=== PATIENT | male | born 1975 | race Caucasian/White ===

== ENCOUNTER 2017-05-19 13:11 | Emergency (ER) | payer BC ==
[~2017-05-19] VITALS: Ht 195.6 cm; Wt 123.7 kg
[2017-05-19 13:17] VITALS: TEMP 37; Ht 195.6 cm; Wt 123.7 kg
[2017-05-19] MEDS ORDERED: ESCI1TAB10 PO (13:58)
[2017-05-19] MEDS ORDERED: MULT-506 PO (13:58)
[2017-05-19] MEDS ORDERED: OMEG10007 PO (13:58)
[2017-05-19] MEDS ORDERED: METH500T37 PO (13:58)
[2017-05-19] MEDS ORDERED: IBUP-103 PO (13:58)
--- NOTE | 2017-05-19 14:14 | DIAGNOSTIC IMAGING REPORT ---
LEFT KNEE 3 VIEWS HISTORY: fall from ladder, Left knee pain COMPARISON: None. FINDINGS: No significant knee effusion. Anterior soft tissue swelling. No knee effusion. Fracture at the inferior pole of the patella which involves the anterior cortex and osteophyte. This does not extend to the patellar facet. Mild tricompartmental osteoarthritis. No radiopaque foreign bodies. IMPRESSION: Fracture at the inferior pole of the patella which involves the anterior cortex and adjacent inferior osteophyte. Electronically signed by: Jonah Gray M.D. 05/19/2017 2:13 PM Dictated Date/Time: 05/19/2017 2:11 PM
[2017-05-19] MEDS ORDERED: HYDR-5688 PO (14:42)
[2017-05-19 15:03] VITALS: BP 159/104; PULSE 65; O2SAT 96
--- NOTE | 2017-05-20 09:55 | EMERGENCY ROOM VISIT NOTE ---
History First contact with patient: 13:26 Chief Complaint: FALL Stated Complaint: FELL OFF LADDER - BROKE L PATELLA History of Present Illness The patient is a 41 year old white male who presents to the Emergency Room with complaints of left knee pain. Patient was on a 15 foot ladder and was painting his barn today. The ladder slid down the side of the building and the patient states he essentially rode the ladder down. He landed on his knees. He had immediate onset of pain in the left knee. 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 He was found to have a fractured patella. Because of this , he came to the ED. He denies any other areas of discomfort. He has been ambulatory. He states he can perform a straight leg raise. He denies any loss of consciousness. He did not hit his head. No headache, nausea, vomiting, chest pain, or shortness of breath. No abdominal pain. No other complaints. His and child accompany him today. No prior history of significant left knee injury. Review of Systems REVIEW OF SYSTEM: HEENT: No dizziness, visual problems, hearing loss, or tinnitus. There is no difficulty swallowing and no oral lesions are present. LYMPH: No adenopathy. PULMONARY: No cough, shortness of breath, sputum production or hemoptysis. CARDIOVASCULAR: No chest pain, palpitations, shortness of breath or peripheral edema. GASTROINTESTINAL: No diarrhea, constipation, nausea, vomiting, or abdominal pain. GENITOURINARY: No dysuria, frequency, urgency or nocturia. NEUROLOGIC: No weakness, muscle tenderness, epilepsy or history of neurological problems. MUSCULOSKELETAL: No history of joint tenderness/swelling. No history of arthritis or arthralgias. SKIN: No rashes or lesions. PSYCHIATRIC: No history of depression or mental illness. ENDOCRINE: No history of diabetes, thyroid disorders, or abnormal hair growth. Past Medical/Surgical History Previous surgeries: None. Medical history: Unremarkable Family History Noncontributory. Social History Smoking Status: Never Smoker Smokeless Tobacco Use: No Drug Use: none Marital Status: Housing Status: lives with family Occupation Status: employed Current/Historical Medications Scheduled Escitalopram Oxalate (Lexapro), 20 MG PO DAILY Fish Oil ([place]-3), 1 CAP PO DAILY Ibuprofen Tab (Advil), 400-800 MG PO Q6H Multivitamin (Multivitamin), 1 TAB PO DAILY Scheduled PRN Hydrocodone/Acetaminophen 5MG/325MG (Arp 5MG/325MG), 1-2 TABLET PO Q4H PRN for Pain Methocarbamol (Robaxin), 1,000-2,000 MG PO UD PRN for Pain Physical Exam Vital Signs Date Time Temp Pulse Resp B/P (MAP) Pulse Ox O2 Delivery O2 Flow Rate FiO2 05/19/17 15:03 65 18 159/104 96 05/19/17 13:17 37.0 94 16 151/99 97 Room Air Pain Rating (0-10): 2.0 Physical Exam Gen.: Well-developed, well-nourished, young white male, in no acute distress. Sitting on a bed. Alert and oriented. Skin:Warm and dry with good turgor. No rashes or lesions. No ecchymosis or erythema. Moderate edema present at the left knee. The patient is not diaphoretic. Linear abrasions present on both shins. No active bleeding. Nothing requires sutures. These appear to be from the ladder rungs. HEENT: Normocephalic atraumatic. Eyes PERRLA, EOMI. No conjunctiva or scleral injection. Nares patent bilaterally without turbinate enlargement. No significant drainage. No epistaxis. Oropharynx without erythema or exudate. Uvula midline, oral mucosa moist. No lesions present. Heart: Heart RRR. No MGR. Peripheral pulses are 2+. Lungs: Lungs are clear to auscultation. No crackles rhonchi or wheezing. Good air movement. The patient is able to take a deep breath. Abdomen: Abdomen was inspected, auscultated, and palpated. Obese. Bowel sounds present x 4. Soft, nontender to palpation. No hepato-splenomegaly. No masses noted. No rebound. Musculoskeletal: Patient has no discomfort with palpation over his cervical, thoracic, or lumbar spine. Full range of motion of his neck without discomfort. Full range of motion of his shoulders, elbows, and wrists. No pain with log rolling of his hips. Stable cruciate and collateral ligaments in the right knee. Stable cruciate and collateral ligaments also in the left knee. No defect palpable in the patellar tendon or quadriceps tendon. There is edema at the left knee. He has discomfort with palpation over the inferior pole of the patella. Patient is able to perform a straight leg raise. Full terminal extension. Flexion to greater than 100. Strength is 5/5 with good quad tone. He has significant discomfort with palpation over the medial and lateral joint lines of the left knee. There is also medial and lateral pain with circumduction testing. Neurologic: Cranial nerves II through XII are intact. Gross sensation is intact across the upper and lower extremities by soft touch. Good short and long-term memory recall. Medical Decision & Procedures ER Provider Diagnostic Interpretation: Radiographic imaging obtained today of the left knee was reviewed by me and read by radiology. He has a small fracture from the inferior pole of the patella. It is not entirely through the body of the patella. Peripatellar spurring is present. Mild arthritic changes are present through the rest of the knee. No evidence for tibial plateau fracture. ED Course Patient and his were educated regarding today's findings. Conservative care measures were discussed. Thorough examination was performed given his mechanism of injury. Fortunately, his only significant injury is the left knee. Possibility of meniscal injury was discussed. Patient was placed in an Jhonatan wrap for compression and a knee immobilizer for stability. Crutches were given and crutch instruction was reviewed. Weightbearing as tolerated in the immobilizer. It should be worn at all times other than bathing. Follow-up with his orthopedist of choice this week for reexamination. He may require an MRI to evaluate the meniscal pathology. He is aware. Ice and elevate frequently to reduce pain and swelling. Tylenol and Motrin every 6 hours as needed for discomfort. Additional prescription was provided for Arp 5 mg to be used every 6 hours for more severe pain. Driving precautions were given. Return to the ED for any other concerns. Medical Decision Possibility of cervical spine injury, intra-thoracic injury, intracranial injury , fracture, tendon rupture, ligament rupture, and meniscal injury were all considered and discussed. Medication Reconcilliation Current Medication List: was personally reviewed by me Blood Pressure Screening Patient's blood pressure: Elevated blood pressure Blood pressure disposition: Elevated BP felt to be situational Impression Primary Impression: Fall from ladder Additional Impression: Closed fracture of left patella Departure Information Dispostion Home / Self-Care Condition GOOD Prescriptions Hydrocodone/Acetaminophen 5MG/325MG (Arp 5MG/325MG) Tab 1-2 TABLET PO Q4H Y for Pain, #15 TAB For Initial Treatment Prov: Brian Hernandez,P.A. 05/19/17 Referrals Delgado Wang M.D. Forms HOME CARE DOCUMENTATION FORM, SPECIAL NARCOTICS INSTRUCTIONS, MOTRIN USE, TYLENOL USE, IMPORTANT VISIT INFORMATION Patient Instructions My [facility] Additional Instructions Ice and elevate frequently to reduce pain and swelling Use the Jhonatan wrap for compression and support Keep the knee immobilizer on at all times other than bathing Use your crutches when walking or [id number] as tolerated in the immobilizer Tylenol and Motrin every 6 hours as needed for mild discomfort Arp one to 2 tablets every 6 hours as needed for more severe pain-no driving Call [facility] orthopedics on Sunday for follow-up this week Return to the ED for any acute changes or worsening of symptoms Problem Qualifiers Primary Impression: Fall from ladder Encounter type: initial encounter Qualified Codes: W11.XXXA - Fall on and from ladder, initial encounter Additional Impression: Closed fracture of left patella Encounter type: initial encounter Fracture morphology: other fracture Qualified Codes: S82.092A - Other fracture of left patella, initial encounter for closed fracture
== END 2017-05-19 15:05 | disposition home or self-care (01) ==
LOC: C.EDB 13:14 → C.EDD 15:05
DX: S82.002A Unspecified fracture of left patella, initial encounter for closed fracture (principal); W17.89XA Other fall from one level to another, initial encounter

== ENCOUNTER → 2017-05-29 | Outpatient (CLI) | payer BC ==
[~2017-05-29] MED LIST: ESCI1TAB10 PO; HYDR-5688 PO; IBUP-103 PO; METH500T37 PO; MULT-506 PO; OMEG10007 PO
--- NOTE | 2017-05-29 11:06 | DIAGNOSTIC IMAGING REPORT ---
L LOWER EXTREMITY WITHOUT CLINICAL HISTORY: 42 years-old Male presenting with LT KNEE INJURY. TECHNIQUE: Multidetector CT of the left knee was performed without the use of intravenous contrast. 3-D volumetric and/or maximum intensity projection (MIP) images were subsequently reconstructed for review. IV contrast: None. A dose lowering technique was used consistent with the principles of ALARA (as low as reasonably achievable). COMPARISON: Correlation made to plain radiographs of the left knee from 05/19/2017. CT DOSE (mGy.cm): The estimated cumulative dose is 240.20 mGy.cm. FINDINGS: Seaman Officer topogram: Unremarkable. Fracture at the base of the prominent enthesophyte at the lateral aspect of the origin of the patellar tendon with additional fracture plane within the osteophyte itself. At the base of the enthesophyte, there is 3 to 4 mm of lateral displacement. Mild thickening of the patellar tendon at the origin. No gross evidence of patellar tendon tear. Moderate prepatellar edema and laminar fluid. No knee joint effusion. No other fracture. Normal muscle bulk. Limited evaluation of the soft tissues demonstrates intact cruciate ligaments and nondisplaced menisci. Grossly normal appearing collateral ligament within the limitations of CT. IMPRESSION: Fracture at the base and through the body of the prominent enthesophyte at the lateral aspect of the origin of the patellar tendon. Minimal associated displacement. No additional fracture. Findings suggest prepatellar bursitis. Electronically signed by: Delgado Spears M.D. 05/29/2017 11:04 AM Dictated Date/Time: 05/29/2017 11:01 AM
== END | disposition home or self-care (01) ==
LOC: C.CTS 10:43
PROVIDERS: ATTEND Physical Medicine & Rehabilitation Sports Medicine
DX: S82.092A Other fracture of left patella, initial encounter for closed fracture (principal); X58.XXXA Exposure to other specified factors, initial encounter

== ENCOUNTER 2019-10-09 15:03 | Inpatient (IN) ==
[2019-10-09 15:59] LABS: Appearance Urine Clear (Clear); Bilirubin Urine Negative (Negative); Blood Urine Negative (Negative); Color Urine Yellow; Glucose Urine UA Negative (Negative); Ketones Urine Trace (Negative); Leukocyte Esterase Urine Negative (Negative); Nitrite Urine Negative (Negative); Protein Urine Negative (Negative); Specific Gravity Urine 1.011 (1.000-1.030); Urobilinogen Urine Negative (Negative); pH Urine 5.5 (4.5-7.5)
--- NOTE | 2019-10-09 16:13 | Emergency Department Note ---
Entered by Lauren John acting as a scribe for History of Present Illness General Chief complaint: Mental Health Evaluation Stated complaint: MENTAL HEALTH Time Seen by Provider: 10/09/19 15:33 Source: patient, family () and other (nursing staff) History of Present Illness Onset (ago): hour(s) (this morning ) Location: head, upper extremity and lower extremity Maximum Pain Intensity: 0 Quality: + other (mental health evaluation ) Exacerbated By: + other (his relationship with his partner from [place] ending ) Associated symptoms: + other (Positive SI (overdosing of drugs)) The patient is a 44 year old male who presents to the ED for a mental health evaluation. As per nursing staff, the patient is accompanied by his , who he has been in a relationship with for 17 years. 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 The patient reports he told his in May that he was sadler and has been in a relationship with another man since May. He states his partner lives in [place]. He notes on his drive back from [place] to [place] this morning, he "had a revelation" that his relationship is not the best for him. He states this worries him, as he has never been alone before. During his drive, he states he experienced a panic attack and had suicidal ideations. The patient notes that he has access to drugs, but he asked his to remove all his access to his drugs. He notes he has firearms in a gun safe but states he has never shot a gun. The patient states he has intentionally lost 70 pounds since May. He is accompanied by his who states the patient has had suicidal ideations more than once. 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 and A total of 10 systems reviewed and were otherwise negative Physical Exam Vital Signs Vital Signs - 24 hr 10/09/19 15:08 10/09/19 17:09 Temperature 36.6 C Temperature Source Oral Pulse Rate 97 H Pulse Rate [Finger] 75 Pulse Rhythm Regular Pulse Rhythm [Finger] Regular Pulse Strength Normal Respiratory Rate 16 18 Respiratory Effort / Characteristics Non-Labored Respiratory Depth Normal Respiratory Pattern Regular Blood Pressure 147/86 H Blood Pressure [Right Arm] 145/76 H Blood Pressure Mean 106 Blood Pressure Mean [Right Arm] 99 Blood Pressure Position Sitting Pulse Oximetry 98 96 Oxygen Delivery Method Room Air Room Air Sepsis Recent Fever Within 48 Hours No Sepsis Action Taken by Nursing No Action Required Course Course 1540: Past medical records reviewed. The patient was evaluated in room A7. A complete history and physical exam was performed. 1700: Patient medically cleared. Vital signs stable. Patient will need to be admitted for inpatient psychiatric help given his suicidal ideation. Awaiting inpatient psychiatric placement. Patient be placed in observation at this time. Administered Medications Medical Decision Making Medical Records Attestation: I reviewed the patient's medical records. Home Medications Current Medication List: was personally reviewed by me Laboratory Data Attestation: I reviewed the patient's lab results. Result diagrams: 10/09/19 16:42 10/09/19 16:42 Lab Results 10/09/19 10/09/19 10/09/19 Range/Units 15:48 15:48 16:42 WBC 11.14 H (4.8-10.8) K/uL RBC 5.06 (4.7-6.1) M/uL Hgb 15.6 (14.0-18.0) g/dL Hct 44.7 (42-52) % MCV 88.3 (80-100) fL MCH 30.8 (25-34) pg MCHC 34.9 (32-36) g/dL RDW Std Deviation 48.7 H (36.4-46.3) fL RDW Coeff of [place] 15.2 H (11.5-14.5) % Plt Count 197 (130-400) K/uL MPV 9.8 (7.4-10.4) fL Immature Gran % (Auto) 0.2 % Neut % (Auto) 64.1 % Lymph % (Auto) 25.0 % [place] % (Auto) 9.2 % Eos % (Auto) 1.2 % Baso % (Auto) 0.3 % Immature Gran # (Auto) 0.02 (0.00-0.02) K/uL Neut # (Auto) 7.15 H (1.4-6.5) K/uL Lymph # (Auto) 2.79 (1.2-3.4) K/uL [place] # (Auto) 1.02 H (0.11-0.59) K/uL Eos # (Auto) 0.13 (0-0.5) K/uL Baso # (Auto) 0.03 (0-0.2) K/uL Sodium (136-145) mmol/L Potassium (3.5-5.1) mmol/L Chloride (98-107) mmol/L Carbon Dioxide (21-32) mmol/L Anion Gap (3-11) BUN (7-18) mg/dl Creatinine (0.6-1.4) mg/dl Est Cr Clr Drug Dosing ml/min Est GFR ( Amer) Est GFR (Non-Af Amer) BUN/Creatinine Ratio (10-20) Glucose (70-99) mg/dl Calcium (8.5-10.1) mg/dl Total Bilirubin (0.2-1) mg/dl AST (15-37) U/L ALT (12-78) U/L Alkaline Phosphatase (45-117) U/L Total Protein (6.4-8.2) gm/dl Albumin (3.4-5.0) gm/dl Globulin (2.5-4.0) gm/dl Albumin/Globulin Ratio (0.9-2) TSH (0.300-4.500) uIu/ml Urine Color Yellow Urine Appearance Clear (Clear) Urine pH 5.5 (4.5-7.5) Ur Specific [place] 1.011 (1.000-1.030) Urine Protein Negative (Negative) Urine Glucose (UA) Negative (Negative) Urine Ketones Trace H (Negative) Urine Blood Negative (Negative) Urine Nitrite Negative (Negative) Urine Bilirubin Negative (Negative) Urine Urobilinogen Negative (Negative) Ur Leukocyte Esterase Negative (Negative) Salicylates (2.8-20) mg/dl Urine Opiates Screen Neg (Neg) Ur Methadone, Qual Neg (Neg) Acetaminophen (10-30) ug/ml Urine Barbiturates Neg (Neg) Ur Phencyclidine (PCP) Neg (Neg) U Amphetamin/Meth Scrn Neg (Neg) MDMA (Ecstasy) Screen Neg (Neg) U Benzodiazepines Scrn Neg (Neg) Ur Cocaine Metabolite Neg (Neg) U Marijuana (THC) Screen Neg (Neg) Ethyl Alcohol mg/dL (0-3) mg/dl 10/09/19 10/09/19 10/09/19 Range/Units 16:42 16:42 16:42 WBC (4.8-10.8) K/uL RBC (4.7-6.1) M/uL Hgb (14.0-18.0) g/dL Hct (42-52) % MCV (80-100) fL MCH (25-34) pg MCHC (32-36) g/dL RDW Std Deviation (36.4-46.3) fL RDW Coeff of [place] (11.5-14.5) % Plt Count (130-400) K/uL MPV (7.4-10.4) fL Immature Gran % (Auto) % Neut % (Auto) % Lymph % (Auto) % [place] % (Auto) % Eos % (Auto) % Baso % (Auto) % Immature Gran # (Auto) (0.00-0.02) K/uL Neut # (Auto) (1.4-6.5) K/uL Lymph # (Auto) (1.2-3.4) K/uL [place] # (Auto) (0.11-0.59) K/uL Eos # (Auto) (0-0.5) K/uL Baso # (Auto) (0-0.2) K/uL Sodium 140 (136-145) mmol/L Potassium 3.8 (3.5-5.1) mmol/L Chloride 108 H (98-107) mmol/L Carbon Dioxide 26 (21-32) mmol/L Anion Gap 6.0 (3-11) BUN 10 (7-18) mg/dl Creatinine 0.88 (0.6-1.4) mg/dl Est Cr Clr Drug Dosing 160.8 ml/min Est GFR ( Amer) 122.8 Est GFR (Non-Af Amer) 106.0 BUN/Creatinine Ratio 11.0 (10-20) Glucose 96 (70-99) mg/dl Calcium 9.6 (8.5-10.1) mg/dl Total Bilirubin 0.7 (0.2-1) mg/dl AST 13 L (15-37) U/L ALT 23 (12-78) U/L Alkaline Phosphatase 65 (45-117) U/L Total Protein 7.6 (6.4-8.2) gm/dl Albumin 4.1 (3.4-5.0) gm/dl Globulin 3.5 (2.5-4.0) gm/dl Albumin/Globulin Ratio 1.2 (0.9-2) TSH 1.370 (0.300-4.500) uIu/ml Urine Color Urine Appearance (Clear) Urine pH (4.5-7.5) Ur Specific [place] (1.000-1.030) Urine Protein (Negative) Urine Glucose (UA) (Negative) Urine Ketones (Negative) Urine Blood (Negative) Urine Nitrite (Negative) Urine Bilirubin (Negative) Urine Urobilinogen (Negative) Ur Leukocyte Esterase (Negative) Salicylates 3.3 (2.8-20) mg/dl Urine Opiates Screen (Neg) Ur Methadone, Qual (Neg) Acetaminophen < 2 L (10-30) ug/ml Urine Barbiturates (Neg) Ur Phencyclidine (PCP) (Neg) U Amphetamin/Meth Scrn (Neg) MDMA (Ecstasy) Screen (Neg) U Benzodiazepines Scrn (Neg) Ur Cocaine Metabolite (Neg) U Marijuana (THC) Screen (Neg) Ethyl Alcohol mg/dL < 3.0 (0-3) mg/dl Blood Pressure Blood Pressure Findings: Elevated blood pressure [facility] Narrative 192: Indication: Suicidal ideation Patient, with anxiety, high blood pressure, was first seen at 1540 and the o bservation time began at 1700 and was necessary in order to determine inpatient psychiatric admission. Upon re-evaluation, 144 minutes of observation revealed that the patient should be admitted to inpatient psychiatry. Disposition date and time October 09, [id number]. Total observation time: 144 minutes Impression & Plan Suicidal ideation Discharge Plan Visit Data Chief Complaint: Mental Health Evaluation Stated Complaint: MENTAL HEALTH ED Provider: Noble Gonzales Discharge Problem: Suicidal ideation Patient Disposition: Transfer Behavioral Health Fac Forms Stand Alone Forms: My [facility], Suicide Prevention Resources Prescriptions Prescriptions: No Action escitalopram oxalate 20 mg tablet 20 mg PO DAILY Qty: 90 RF: 0 Referrals Referrals: Gely Galeano MD [Primary Care Provider] - The scribe's documentation has been prepared under my direction and personally reviewed by me in its entirety. I confirm that the note above accurately reflects all work, treatment, procedures, and medical decision making performed by me.
[2019-10-09 16:22] LABS: Amphetamines+Metham, Urine Neg (Neg); Barbiturates, Urine Neg (Neg); Benzodiazepine, Urine Neg (Neg); Cocaine, Urine Neg (Neg); MDMA (Ecstacy), Urine Neg (Neg); Methadone, Urine Neg (Neg); Opiate, Urine Neg (Neg); Phencyclidine, Urine Neg (Neg)
[2019-10-09 16:58] LABS: Basophils # (auto) 0.03 K/uL (0-0.2); Basophils % (auto) 0.3 %; Eosinophils # (auto) 0.13 K/uL (0-0.5); Eosinophils % (auto) 1.2 %; Hematocrit (blood only) 44.7 % (42-52); Hemoglobin 15.6 g/dL (14.0-18.0); Immature Granulocytes # (auto) 0.02 K/uL (0.00-0.02); Immature Granulocytes % (auto) 0.2 %; Lymphocytes # (auto) 2.79 K/uL (1.2-3.4); Mean Corpuscular Hemoglobin 30.8 pg (25-34); Mean Corpuscular Hgb Conc 34.9 g/dL (32-36); Mean Corpuscular Volume 88.3 fL (80-100); Mean Platelet Volume 9.8 fL (7.4-10.4); Monocytes # (auto) 1.02 K/uL (0.11-0.59); Monocytes % (auto) 9.2 %; Neutrophils # (auto) 7.15 K/uL (1.4-6.5); Neutrophils % (auto) 64.1 %; Platelet Count 197 K/uL (130-400); RDW Coefficient of Variation 15.2 % (11.5-14.5); RDW Standard Deviation 48.7 fL (36.4-46.3); Red Blood Count 5.06 M/uL (4.7-6.1); White Blood Count 11.14 K/uL (4.8-10.8)
[2019-10-09 17:19] LABS: Albumin Level 4.1 gm/dl (3.4-5.0); Calcium 9.6 mg/dl (8.5-10.1); Creatinine Clr Calc Pharmacy 160.8 ml/min; Est GFR (African American) 122.8; Potassium 3.8 mmol/L (3.5-5.1)
[2019-10-09 17:23] LABS: Acetaminophen < 2 ug/ml (10-30); Salicylate 3.3 mg/dl (2.8-20)
[2019-10-09 17:30] LABS: Albumin Globulin Ratio 1.2 (0.9-2); Bilirubin,Total 0.7 mg/dl (0.2-1); Globulin 3.5 gm/dl (2.5-4.0); Thyroid Stimulating Hormone 1.37 uIu/ml (0.300-4.500); Total Protein 7.6 gm/dl (6.4-8.2)
[2019-10-09] MEDS ORDERED: BISMUTH SUBSALICYLATE PER ML OMNICELL CHARGE PO PRN (19:09)
[2019-10-09] MEDS ORDERED: MAGNESIUM HYDROXIDE SUSP 30 ML UDC PO PRN (19:09)
[2019-10-09] MEDS ORDERED: SODIUM CHLORIDE 0.65% NA SOLN 45 ML (OCEAN) PRN (19:09)
[2019-10-09] MEDS ORDERED: ACETAMINOPHEN 325 MG TAB PO PRN (19:09)
[2019-10-09] MEDS ORDERED: ALUMINUM/MAGNESIUM SUSP 30 ML UDC PO PRN (19:09)
[2019-10-09] MEDS ORDERED: NICOTINE POLACRILEX 2 MG GUM MT PRN (20:41)
[2019-10-10] MEDS: NICOTINE 14 MG/24 HR PATCH TD SCH (09:08)
[2019-10-10] MEDS: ESCITALOPRAM OXALATE 20 MG TAB PO SCH (11:24)
--- NOTE | 2019-10-10 11:37 | History & Physical ---
Date of Service October 10, 2019 Impression / Recommendations Impression This 44-year-old man was admitted after he presented in the emergency department and reported active suicidal thoughts. 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 His reported thought was of taking a lethal overdose. The context for this was a series of circumstantial difficulties and psychosocial stressors, as well as the patient's difficulty adjusting to these stressors. Specifically, he recently told his of 12 years that he is sadler and involved in a romantic relationship with another man. The patient and his in July and the patient now has his own apartment. However, the patient's remains concerned and supportive. The couple plans to divorce. The romantic relationship with the other man (at least counting from the time that the 2 men had a [id number] meeting) is only approximately 4 months old. This is the patient's first serious same-sex relationship, and he acknowledges that he is eager to make this a permanent, committed, mutually supportive domestic partnership/marriage. On the other hand, the patient's boyfriend is significantly younger than the patient, and, as best I can tell, has some ambivalence about fully committing. However, the patient reports that the boyfriend has said that he will move with him to [facility] if the patient 60s and getting a residency in veterinary reproductive medicine at [employer], and while the patient and his boyfriend have not formally informed of domestic partnership, the patient notes that he has been staying with his boyfriend and t he boyfriend's residence in [place], approximately an hour away from home. This circumstance has caused the patient to feel guilty because he is not seeing his 9-year-old son as often as he would like. Also he worries a great deal about the fact that he may be "imposing" himself on the boyfriend and, also, a says that he feels that he cannot be certain of the boyfriends fidelity. In fact, despite a commitment to monogamy the boyfriend did cheat, fairly recently, and the crisis that seems to have precipitated the admission occurred when the patient, while staying at the boyfriend's apartment, awoke and discovered that the boyfriend had been corresponding with his ex-boyfriend through electronic media, even though he had promised not to. We are planning a meeting with the patient's boyfriend this afternoon or tomorrow. The concern at this point is that the patient has access to lethal means, namely a number of potentially lethal drugs because of his job as a protective services case worker. He denies current suicidal ideation, reports that he has no history of self-injurious behaviors, and says today that he never actually had any suicidal intentalthough he was very frightened to have had the thought of taking a lethal overdose and realized that he needed to come someplace where he could be sure to being safe. In addition to Lexapro 20 mg a day, bupropion extended release 150 mg has been added to the patient's medication regimen approximately 2 months ago. Initially, the patient says that he noted increased energy and increased focus in response to bupropion, but that that benefit has not progressed. I do not believe that this needs to be anything other than a short psychiatric hospitalization, it appears that it was precipitated by a crisis, and we are hoping that following an intervention with the patient has boyfriend, as well as helping the patient work on coping strategies, we will be able to safely release the patient for outpatient treatment in the near future. Of note is the fact that 1 of the patient's previous coping strategies has been to misuse alcohol. He is not currently misusing alcohol and reports abstinence for several months, but this also needs to be considered further. (1) Suicidal ideation: 10/10/19. -The patient presented in the emergency department yesterday where he reported suicidal thoughts. 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 -He reports that he does not have a past history of suicidal ideation (with the exception of fleeting, nonspecific thoughts of ) and has no history of ever having made a suicide attempt. -The precipitating factor seems to have been a crisis that involve the patient learning earlier in the day that the patient's boyfriend, Robinson, had been in communication with Robinson's ex-boyfriend, a man with whom Robinson had recently cheated on the patient. The patient says that he was overwhelmed by feeling that he may not be able to trust Robinson, and he also feels overwhelmed by the fact that he does not feel secure in Robinson's commitment to him. -The patient has been admitted to a locked unit and has been placed on suicide precautions. He is actively participating in individual, group, and activity therapies. -Today, the patient says that he is no longer having thoughts of suicide and is future oriented. However, given the potential lethal risk, and given the fact that the patient's affect remains tearful, we do not feel that the patient could be safely discharged at the present time. There is a plan to meet with the patient's boyfriend later today or tomorrow. Present on Admission?: Yes (2) Adjustment disorder with mixed emotional features: 10/10 -The patient is having difficulty adjusting to multiple psychosocial stressors. 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 -The patient has been referred for individual and group therapy in order to teach him improved coping strategies Present on Admission?: Yes Inventory Assets Strengths: Future oriented. Supportive friends and family. Actively engaged in outpatient treatment. Motivated to recovery. Needs: Improved individual coping strategies. Relief from anxious distress. Risk Factors Assessment Male: Yes : Yes Do You Have Access To A Gun?: No Health Problems: No Mental Health Diagnoses: Yes Substance Use Disorders: No Previous Attempt: No Family History of Suicide: No Previous Psychiatric Hospitalization: No Hopelessness: No Smoker: Yes Protective Factors Assessment Sabianist Beliefs: No : Yes Responsible for Young Children: Yes Employed: Yes Stable Relationships: Yes Supportive Family: Yes Good Rapport with Provider: Yes Absence of Any Risk Factors Above: No Psychiatric History Identifying Data GILSON TIERNEY is a 44-year-old M who currently lives in alone, locally. He has a history of generalized anxiety and panic disorder. He and was admitted on 10/09/19 19:10 on a 201 voluntary agreement because of suicidal thoughts that involved taking an overdose of drugs. Chief Complaint "I got overwhelmed.". History of Present Illness The patient is a 44-year-old man who was admitted through the emergency department after he presented and reported thoughts of taking an overdose of medications. 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 The patient's is also a protective services case worker, and the two share a practice with slightly different foci. The patient notes that he has always had great affection for his and he also notes that the 2 have a lot in common and enjoys others company. However, he has always known that he is sadler, fact that he did not disclose to his until fairly recently. He entered into his first same sex romantic relationship during the summer 2018, via electronic media, and met the man who the patient identifies as his boyfriend, [id number], and in May 2019. The boyfriend, Robinson is approximately 10 years younger. Although Robinson has been in several long-term romantic relationships, he has never had a domestic partnership. At the same time, the patient's interest is and establishing a close, affectionate, and mutually supportive domestic partnership, which might include marriage. 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 The patient reports that upon learning that the patient had hidden such an important part of his life from her she felt that she could not prudently enter into an expanded business relationship with him, and the couple amicably in July. The patient began living in his own apartment locally, but began to visit and spend the night with his boyfriend, a nurse who lives in [place], [place]. Eventually, the patient reports that "most nights" he was staying with his boyfriend in [place], and he has had a strong sense of insecurity because he is not entirely sure that his boyfriend wants or is ready for a domestic partnership. Also, at some point in the fairly recent past the patient discovered that the boyfriend, Robinson, was cheating on him with an ex-boyfriend. Although Robinson promised to have no fu rther contact with him, the precipitating crisis seems to have been that the patient learned that, in fact, Robinson had been talking to the boyfriend ("Shay") through electronic media. 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 It was for that reason that he was able to spend so much time in [place], rather in [place] where he and his have their joint practice. Further, the patient has applied for a residency in reproductive veterinary science at [employer]'s veterinary school in [facility]. Residency positions are generally filled through a residency "match," but the patient did not decide to apply for the residency until after it was too late to register for the match, so he applied for the residency outside of the match and had been hopeful that he would secure the residency. However, [employer] selected somebody from the match, but has recently offered the patient an opportunity to either, as a second resident, or, possibly, come to [place] and assist in the school's research for 1 year, and then enter the two-year residency next year. Patient reports that he has generally not been depressed, except for recently within the context of the difficulty he is having adjusting to his current complicated circumstances. Past Psychiatric History Previous Psych History: The patient reports that he has no history of suicide attempts and has never intentionally engaged in self-injurious behaviors. He also notes that he has not previously had thoughts of suicide. There is no history of psychiatric hospitalization. He is currently seeing two psychotherapists on an outpatient basis. Also, he has been taking the antidepressant medication Lexapro 20 mg a day as prescribed by his primary care physician. Current Psychiatric Diagnosis: N/A Outpatient Services: The patient is currently in outpatient treatment with 2 psychotherapist. He notes that he has an appointment with 1 of them next week. Although he has not previously seen a psychiatrist, he is currently taking the antidepressant medication Lexapro as prescribed by a primary care physician. Do You Have Access To A Gun?: No History of Previous Suicide Attempt: No Describe Attempts in the Past: Not applicable Past Medication Trials: Lexapro Past Head Trauma/Neuro History History of Concussion/Seizure: No Allergies Allergy/AdvReac Type Severity Reaction Status Date / Time No Known Allergies Allergy Verified 09/01/19 14:01 Home Medications Home Medications Medication Instructions Recorded Confirmed Type escitalopram oxalate 20 mg tablet 20 mg PO DAILY #90 tab 09/10/19 10/09/19 Rx Family History Family History of: Doesn't Know Alcohol History Hx of Alcohol Use Over the Past 12 Months: Yes (social drinking, varying amounts) AUDIT Total Score: 4 Patient reports that he stopped drinking completely after he came out to his several months ago. He acknowledges that he had a past history of fairly heavy alcohol use, and notes that he sometimes drank as much as a liter of rum over the course of several days. Smoking Use Have You Smoked or Used Tobacco Products in the Last 30 Days: Yes tobacco type: cigarettes Smoking Status: Current every day smoker Smoking packs per day: 0.5 Substance History Hx of Prescription Med Misuse Over the Past 12 Months: No Hx of Over the Counter Med Misuse Over the Past 12 Months: No Hx of Inhalent Misuse Over the Past 12 Months: No Hx of Organic Substance Use Over the Past 12 Months: No Hx of Illegal Substances/Street Drug Use Over Past 12 Months: No Problems as a Result of Past Substance Use: None Identified Personal History Living Arrangements: Home Highest Grade Completed: Graduate School Employment Status: Self-Employed Beliefs That Will Affect Care: None (Patient notes that he was raised as a Zoroastrian.) Current Legal Problems: No Hx Legal Problems: No Hx Traumatic Life Events: No (Patient reports that he was bullied and teased as a child in [facility] because other children perceive that he was "sadler.") Patient History Medical History Alopecia (Acute) Surgical History H/O Achilles tendon repair Family History Father Heart disease Alcoholism Pancreatitis Mother Thyroid disease Social History Preferred Language: Fijian Communication Ability: Effective Mines Inspector Required: No Beliefs That Will Affect Care: None (Patient notes that he was raised as a Zoroastrian.) marital status: Legally Current Living Situation: Alone current occupational status: employed 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 Noble Gonzales in the emergency department has been reviewed and is accepted for purposes of medical clearance to the behavioral health unit. Physical Exam Psychiatric: Orientation: alert, oriented x 3 and cooperative Apperance: appropriately dressed Eye Contact: + fair eye contact Motor Behavior: steady gait and station Speech: normal rate/rhythm/volume of speech The patient's affect is mildly depressed and at times tearful when discussing his marriage as well as his current romantic relationship. Mood: + anxious mood Thought Process: goal directed thought process, linear/logical thought process and clear/coherent thought process Thought Content: reality based without delusions The patient reports suicidal thoughts involving taking an overdose of accessible medications. Today, he reports that he does not have any suicidal intent. Homicidal Thoughts: denies homicidal thoughts Hallucinations: no auditory hallucinations Cognition: recent memory grossly intact, remote memory grossly intact, attention grossly intact and language grossly intact Estimated Intelligence: + above average estimated intelligence Insight: good insight Judgement: good judgement Vital Signs (Past 24 Hours): Last Vital Signs Temp 36.7 C 10/10/19 06:46 Pulse 81 10/10/19 06:47 Resp 18 10/10/19 06:46 BP 125/86 10/10/19 06:47 Pulse Ox 98 10/09/19 20:25 Results & Data ([facility]) Laboratory Results Laboratory Results - last 24 hr 10/09/19 10/09/19 10/09/19 15:48 15:48 16:42 WBC 11.14 H RBC 5.06 Hgb 15.6 Hct 44.7 MCV 88.3 MCH 30.8 MCHC 34.9 RDW Std Deviation 48.7 H RDW Coeff of [place] 15.2 H Plt Count 197 MPV 9.8 Immature Gran % (Auto) 0.2 Neut % (Auto) 64.1 Lymph % (Auto) 25.0 [place] % (Auto) 9.2 Eos % (Auto) 1.2 Baso % (Auto) 0.3 Immature Gran # (Auto) 0.02 Neut # (Auto) 7.15 H Lymph # (Auto) 2.79 [place] # (Auto) 1.02 H Eos # (Auto) 0.13 Baso # (Auto) 0.03 Sodium Potassium Chloride Carbon Dioxide Anion Gap BUN Creatinine Est Cr Clr Drug Dosing Est GFR ( Amer) Est GFR (Non-Af Amer) BUN/Creatinine Ratio Glucose Calcium Total Bilirubin AST ALT Alkaline Phosphatase Total Protein Albumin Globulin Albumin/Globulin Ratio TSH Urine Color Yellow Urine Appearance Clear Urine pH 5.5 Ur Specific [place] 1.011 Urine Protein Negative Urine Glucose (UA) Negative Urine Ketones Trace H Urine Blood Negative Urine Nitrite Negative Urine Bilirubin Negative Urine Urobilinogen Negative Ur Leukocyte Esterase Negative Salicylates Urine Opiates Screen Neg Ur Methadone, Qual Neg Acetaminophen Urine Barbiturates Neg Ur Phencyclidine (PCP) Neg U Amphetamin/Meth Scrn Neg MDMA (Ecstasy) Screen Neg U Benzodiazepines Scrn Neg Ur Cocaine Metabolite Neg U Marijuana (THC) Screen Neg Ethyl Alcohol mg/dL 10/09/19 10/09/19 10/09/19 16:42 16:42 16:42 WBC RBC Hgb Hct MCV MCH MCHC RDW Std Deviation RDW Coeff of [place] Plt Count MPV Immature Gran % (Auto) Neut % (Auto) Lymph % (Auto) [place] % (Auto) Eos % (Auto) Baso % (Auto) Immature Gran # (Auto) Neut # (Auto) Lymph # (Auto) [place] # (Auto) Eos # (Auto) Baso # (Auto) Sodium 140 Potassium 3.8 Chloride 108 H Carbon Dioxide 26 Anion Gap 6.0 BUN 10 Creatinine 0.88 Est Cr Clr Drug Dosing 160.8 Est GFR ( Amer) 122.8 Est GFR (Non-Af Amer) 106.0 BUN/Creatinine Ratio 11.0 Glucose 96 Calcium 9.6 Total Bilirubin 0.7 AST 13 L ALT 23 Alkaline Phosphatase 65 Total Protein 7.6 Albumin 4.1 Globulin 3.5 Albumin/Globulin Ratio 1.2 TSH 1.370 Urine Color Urine Appearance Urine pH Ur Specific [place] Urine Protein Urine Glucose (UA) Urine Ketones Urine Blood Urine Nitrite Urine Bilirubin Urine Urobilinogen Ur Leukocyte Esterase Salicylates 3.3 Urine Opiates Screen Ur Methadone, Qual Acetaminophen < 2 L Urine Barbiturates Ur Phencyclidine (PCP) U Amphetamin/Meth Scrn MDMA (Ecstasy) Screen U Benzodiazepines Scrn Ur Cocaine Metabolite U Marijuana (THC) Screen Ethyl Alcohol mg/dL < 3.0 Current Inpatient Medications Current Inpatient Medications: Current Inpatient Medications Acetaminophen (Tylenol) 650 mg PO Q4H PRN PRN Reason: Headache or Minor Fever Stop: 11/08/19 19:08 Al Hydrox/Mg Hydrox/Simethicone (Maalox) 30 ml PO Q4H PRN PRN Reason: GI Upset Stop: 11/08/19 19:08 Bismuth Subsalicylate (Kaopectate) 15 ml PO PRN PRN PRN Reason: Loose Stool Stop: 11/08/19 19:08 Escitalopram Oxalate (Lexapro Tab) 20 mg PO QAM [facility] Stop: 11/09/19 10:14 Hydroxyzine HCl (Vistaril) 50 mg PO HSZ PRN PRN Reason: Insomnia Stop: 11/08/19 19:08 Hydroxyzine HCl (Vistaril) 25 mg PO Q4H PRN PRN Reason: Anxiety Stop: 11/08/19 19:08 Last Admin: 10/09/19 20:36 Dose: 25 mg Documented by: Magnesium Hydroxide (Milk Of Magnesia) 30 ml PO DAILY PRN PRN Reason: Constipation Stop: 11/08/19 19:08 Miscellaneous (Remove Nicoderm Patch) 1 ea N/A DAILY@[id number] [facility] Stop: 11/09/19 08:58 Last Admin: 10/10/19 09:07 Dose: Not Given Documented by: Nicotine (Nicoderm Cq) 14 mg TD QAM [facility] Stop: 11/09/19 08:59 Last Admin: 10/10/19 09:08 Dose: Not Given Documented by: Nicotine Polacrilex (Nicorette 2mg) 1 piece MT Q2H PRN PRN Reason: cravings Stop: 11/08/19 20:40 Sodium Chloride ([place] Nasal) 1 - 2 sprays NA PRN PRN PRN Reason: Nasal Dryness/Congestion Stop: 11/08/19 19:08
[2019-10-11] MEDS: NICOTINE 14 MG/24 HR PATCH TD SCH (08:33)
[2019-10-11] MEDS: ESCITALOPRAM OXALATE 20 MG TAB PO SCH (08:33)
--- NOTE | 2019-10-11 12:30 | Discharge Summary ---
Date of Service October 11, 2019 History of Present Illness The patient is a 44-year-old man who was admitted through the emergency department after he presented and reported thoughts of taking an overdose of medications. 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 The patient's is also a health director, and the two share a practice with slightly different foci. The patient notes that he has always had great affection for his and he also notes that the 2 have a lot in common and enjoys others company. However, he h as always known that he is sadler, fact that he did not disclose to his until fairly recently. He entered into his first same sex romantic relationship during the summer 2018, via electronic media, and met the man who the patient identifies as his boyfriend, [id number], and in May 2019. The boyfriend, Robinson is approximately 10 years younger. Although Robinson has been in several long-term romantic relationships, he has never had a domestic partnership. At the same time, the patient's interest is and establishing a close, affectionate, and mutually supportive domestic partnership, which might include marriage. 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 The patient reports that upon learning that the patient had hidden such an important part of his life from her she felt that she could not prudently enter into an expanded business relationship with him, and the couple amicably in July. The patient began living in his own apartment locally, but began to visit and spend the night with his boyfriend, a nurse who lives in [place], [place]. Eventually, the patient reports that "most nights" he was staying with his boyfriend in [place], and he has had a strong sense of insecurity because he is not entirely sure that his boyfriend wants or is ready for a domestic partnership. Also, at some point in the fairly recent past the patient discovered that the boyfriend, Robinson, was cheating on him with an ex-boyfriend. Although Robinson promised to have no further contact with him, the precipitating crisis seems to have been that the patient learned that, in fact, Robinson had been talking to the boyfriend ("Shay") through electronic media. 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 It was for that reason that he was able to spend so much time in [place], rather in [place] where he and his have their joint practice. 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 Residency positions are generally filled through a residency "match," but the patient did not decide to apply for the residency until after it was too late to register for the match, so he applied for the residency outside of the match and had been hopeful that he would secure the residency. However, [employer] selected somebody from the match, but has recently offered the patient an opportunity to either, as a second resident, or, possibly, come to [place] and assist in the school's research for 1 year, and then enter the two-year residency next year. Patient reports that he has generally not been depressed, except for recently within the context of the difficulty he is having adjusting to his current complicated circumstances. Physical Exam Psychiatric at time of discharge assessment Orientation: alert, oriented x 3 and cooperative Apperance: appropriately dressed Eye Contact: good eye contact Motor Behavior: steady gait and station Speech: normal rate/rhythm/volume of speech Affect: euthymic affect Mood: no depressed mood, no anxious mood and no irritable mood Thought Process: goal directed thought process, linear/logical thought process and clear/coherent thought process Thought Content: reality based without delusions Suicidal Thoughts: denies suicidal thoughts Homicidal Thoughts: denies homicidal thoughts Hallucinations: no auditory hallucinations Cognition: recent memory grossly intact, remote memory grossly intact, attention grossly intact and language grossly intact Estimated Intelligence: + above average estimated intelligence Insight: good insight Judgement: good judgement Vital Signs (Past 24 Hours) Last Vital Signs Temp 36.5 C 10/11/19 12:03 Pulse 76 10/11/19 12:03 Resp 18 10/11/19 12:03 BP 142/78 H 10/11/19 12:03 Pulse Ox 98 10/11/19 12:03 Principal Diagnosis Adjustment disorder with anxious and depressive features Psychiatric Data Day of Discharge Assessment Patient was assessed by promotion writer and reviewed by nursing and social work. Pt had family meeting with and with his boyfriend. Pt denies any further SI and feels safe and ready for discharge and feels able to handle his stressors. He is focused on making some shifts in his life and in his relationship to be less dependent on others socorro his current intimate relationship. He is taking Lexapro 20mg a day and feels comfortable maintaining this medication unchanged. He is interested in having Vistaril 25mg as a prn to help settle any further acute emotional tension that felt too overwhelming to settle down via coping strategies or by other cognitive behavioral approaches. He is set to continue with his individual therapist and his couples therapist (with boyfriend).His Lexapro is currently managed by his PCP but he is aiming to obtain psychiatric medication management at [facility] with referral placed. He is aiming to quit smoking and not noticing any urges to smoke currently and feels up to quit smoking at this time. He has refused nicotine replacement therapy ordered while on the unit and refusing same at discharge. He has used Chantix in the past with it being an alleviating factor in prior times of quitting smoking but refused this promotion writer's option of prescribing Chantix at time of discharge. He was reminded that can seek Chantix and further assistance n quitting smoking with his outpatient providers. he is not interested in smoking cessation tip line. He denied any h/o psychotic features or manic symptoms. His and boyfriend feel he is ready for discharge. sleep has been intact besides some brief fleeting awakenings at night and his appetite has been intact Transition of Care Transition Of Care Record: was reviewed with the patient Advance Directives Advance Directives Information Provided: Yes Advance Directives: No Mental Health Advance Directive: No Advance Directives on File: No Living Will: No Power of Policy Intern: No Advance Directives Reason:: Declines as Mental Health Visit. Risk Factors Assessment Male: Yes : Yes Do You Have Access To A Gun?: No Health Problems: No Mental Health Diagnoses: Yes Substance Use Disorders: No Previous Attempt: No Family History of Suicide: No Previous Psychiatric Hospitalization: No Hopelessness: No Smoker: Yes Protective Factors Assessment Yarsani Beliefs: No : Yes Responsible for Young Children: Yes Employed: Yes Stable Relationships: Yes Supportive Family: Yes Good Rapport with Provider: Yes Absence of Any Risk Factors Above: No Tobacco Cessation at Discharge Tobacco Cessation Medication Prescribed at Discharge: Offered & Pt Refused (see day of discharge asessment ) Total Time Total Time Spent: Greater Than 30 Minutes Total Time Includes: Examination of the patient, Discharge Planning, Medication Reconciliation and As well as (review with nursing and social work) Discharge Data Lab Results 10/09/19 10/09/19 10/09/19 15:48 15:48 16:42 WBC 11.14 H RBC 5.06 Hgb 15.6 Hct 44.7 MCV 88.3 MCH 30.8 MCHC 34.9 RDW Std Deviation 48.7 H RDW Coeff of Emory 15.2 H Plt Count 197 MPV 9.8 Immature Gran % (Auto) 0.2 Neut % (Auto) 64.1 Lymph % (Auto) 25.0 [place] % (Auto) 9.2 Eos % (Auto) 1.2 Baso % (Auto) 0.3 Immature Gran # (Auto) 0.02 Neut # (Auto) 7.15 H Lymph # (Auto) 2.79 [place] # (Auto) 1.02 H Eos # (Auto) 0.13 Baso # (Auto) 0.03 Sodium Potassium Chloride Carbon Dioxide Anion Gap BUN Creatinine Est Cr Clr Drug Dosing Est GFR ( Amer) Est GFR (Non-Af Amer) BUN/Creatinine Ratio Glucose Calcium Total Bilirubin AST ALT Alkaline Phosphatase Total Protein Albumin Globulin Albumin/Globulin Ratio TSH Urine Color Yellow Urine Appearance Clear Urine pH 5.5 Ur Specific [place] 1.011 Urine Protein Negative Urine Glucose (UA) Negative Urine Ketones Trace H Urine Blood Negative Urine Nitrite Negative Urine Bilirubin Negative Urine Urobilinogen Negative Ur Leukocyte Esterase Negative Salicylates Urine Opiates Screen Neg Ur Methadone, Qual Neg Acetaminophen Urine Barbiturates Neg Ur Phencyclidine (PCP) Neg U Amphetamin/Meth Scrn Neg MDMA (Ecstasy) Screen Neg U Benzodiazepines Scrn Neg Ur Cocaine Metabolite Neg U Marijuana (THC) Screen Neg Ethyl Alcohol mg/dL 10/09/19 10/09/19 10/09/19 16:42 16:42 16:42 WBC RBC Hgb Hct MCV MCH MCHC RDW Std Deviation RDW Coeff of Emory Plt Count MPV Immature Gran % (Auto) Neut % (Auto) Lymph % (Auto) [place] % (Auto) Eos % (Auto) Baso % (Auto) Immature Gran # (Auto) Neut # (Auto) Lymph # (Auto) [place] # (Auto) Eos # (Auto) Baso # (Auto) Sodium 140 Potassium 3.8 Chloride 108 H Carbon Dioxide 26 Anion Gap 6.0 BUN 10 Creatinine 0.88 Est Cr Clr Drug Dosing 160.8 Est GFR ( Amer) 122.8 Est GFR (Non-Af Amer) 106.0 BUN/Creatinine Ratio 11.0 Glucose 96 Calcium 9.6 Total Bilirubin 0.7 AST 13 L ALT 23 Alkaline Phosphatase 65 Total Protein 7.6 Albumin 4.1 Globulin 3.5 Albumin/Globulin Ratio 1.2 TSH 1.370 Urine Color Urine Appearance Urine pH Ur Specific [place] Urine Protein Urine Glucose (UA) Urine Ketones Urine Blood Urine Nitrite Urine Bilirubin Urine Urobilinogen Ur Leukocyte Esterase Salicylates 3.3 Urine Opiates Screen Ur Methadone, Qual Acetaminophen < 2 L Urine Barbiturates Ur Phencyclidine (PCP) U Amphetamin/Meth Scrn MDMA (Ecstasy) Screen U Benzodiazepines Scrn Ur Cocaine Metabolite U Marijuana (THC) Screen Ethyl Alcohol mg/dL < 3.0 Hospital Course (1) Suicidal ideation: 10/10/19. -The patient presented in the emergency department yesterday where he reported suicidal thoughts. 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 -He reports that he does not have a past history of suicidal ideation (with the exception of fleeting, nonspecific thoughts of ) and has no history of ever having made a suicide attempt. -The precipitating factor seems to have been a crisis that involve the patient learning earlier in the day that the patient's boyfriend, Robinson, had been in communication with Robinson's ex-boyfriend, a man with whom Robinson had recently cheated on the patient. The patient says that he was overwhelmed by feeling that he may not be able to trust Robinson, and he also feels overwhelmed by the fact that he does not feel secure in Robinson's commitment to him. -The patient has been admitted to a locked unit and has been placed on suicide precautions. He is actively participating in individual, group, and activity therapies. -Today, the patient says that he is no longer having thoughts of suicide and is future oriented. However, given the potential lethal risk, and given the fact that the patient's affect remains tearful, we do not feel that the patient could be safely discharged at the present time. There is a plan to meet with the patient's boyfriend later today or tomorrow. (2) Adjustment disorder with mixed emotional features: 10/10 -The patient is having difficulty adjusting to multiple psychosocial stressors. 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 -The patient has been referred for individual and group therapy in order to teach him improved coping strategies Mental Health & Subst Abuse Tx Psychiatrist Name of Psychiatrist: Dr. Florez, [facility] Psychiatrist's Psychiatric Appointment Comment: Call to follow up Psychiatrist Release of Information: Obtained, Reviewed and Signed Therapist Name of Therapist: Primo Escobar Date of Therapist Appointment: 10/17/19 Time of Therapist Appointment: 5pm Therapist Release of Information: Obtained, Reviewed and Signed Continuous Improvement Manager Name of Continuous Improvement Manager: . Post Discharge Appointments Primary Care Physician Name Of Family Doctor: Dr. Galeano [facility] Date of Appointment with PCP: 10/17/19 Time of Appointment with PCP: 10:10 Provider Appointment Comment: [facility] Release of Information: Obtained, Reviewed and Signed Smoking Cessation Counseling Tobacco Cessation Medication Prescribed at Discharge: Offered & Pt Refused (see day of discharge asessment ) Other #1: Name of Aftercare Appointment: Albina Rojas, [facility] Date of Aftercare Appointment: 10/13/19 Time of Aftercare Appointment: 5pm Release of Information Aftercare Appointment: Obtained, Reviewed and Signed Discharge Plan Discharge Items Patient Disposition: Home - Self-Care Reason For Visit: other depressive disorder Discharge Diagnosis: other depressive disorder Activity: Resume your previous activity Non-emergency contact: Primary Care Provider, Psychiatrist and Therapist Call non-emergency contact if: you have any medication questions and your symptoms worsen Follow-up/Referrals: Gely Galeano MD [Primary Care Provider] - Diet: Regular Addtl Attending Provider Instructions: SPECIAL CARE INSTRUCTIONS: 1. Follow through with your scheduled aftercare appointments. If unable to keep an appointment, please call to reschedule. 2. Take your medication only as prescribed. Medication should not be changed or stopped without the approval of your doctor. In the event of worsening symptoms or concerns about side effects, contact your doctor immediately. 3. Utilize new healthy coping skills, anger management skills, and stress management skills learned during your hospitalization. Journal feelings and process them with a support person. Identify stressors or situations that may result in relapse, deterioration or inappropriate behaviors and develop a plan to deal with those issues. 4. If your coping skills are ineffective and you are in crisis, contact your outpatient providers for direction. If unable to reach your providers, please call the CAN HELP LINE AT or go to the closest Emergency Room. 5. Avoid alcohol and un-prescribed drugs. 6. You have been provided with the Mental Health Advance Directives Pamphlet for your review. AFTERCARE APPOINTMENTS: * Please call your insurance company prior to your scheduled appointment to confirm your aftercare providers are covered. Take your insurance information to your appointments. WHO TO CALL AND WHEN: Medical Emergencies: For questions or emergencies related to your hospital stay, please contact the Inpatient Behavioral Health Unit at [phone]. A legislative correspondent is on-call 19/03 for the Behavioral Health Unit for emergencies At any time you feel your situation is an emergency, you may also call 911 immediately. Your Doctors Instructions noted above were prepared by provider Shay Turner MD. Pending Studies at Discharge: No Stand-Alone Forms: My [facility] [employer], Smoking Cessation, Suicide Preve ntion Resources Medications and DC Order Prescriptions: New hydroxyzine HCl 25 mg Tablet 25 mg PO Q4H Qty: 15 RF: 0 Continued escitalopram oxalate 20 mg tablet 20 mg PO DAILY Qty: 90 RF: 0 Discharge Orders: Discharge Order (Routine); Ordered 10/11/19 Ordered By: Shay Turner Admission Data Admit Date/Time: 10/09/19 19:10 Attending Provider: Robinson Florez Admit Provider: Shyann Howard Primary Care Provider: Gely Galeano Other Interventions: Discharge Summary Assessment (RN) Last Done: 10/11/19 12:03 PSY Interdisciplinary Discharge Planning Last Done: 10/11/19 12:02 DC Date/Time DO NOT enter until pt leaves facility: 10/11/19 13:45 Coding Level of Care Code 25226 D/C day mgmt > 30 min Diagnoses Suicidal ideation R45.851 Adjustment disorder with mixed emotional features F43.29
== END 2019-10-11 13:45 | disposition home or self-care (01) | DRG 882 ==
LOC: ED 15:03 → 3S 19:10